=== PATIENT | female | born 1985 | race Caucasian/White ===

== ENCOUNTER 2019-08-19 10:22 | Emergency (ER) | payer SELFPAY ==
[~2019-08-19] VITALS: Ht 170.2 cm; Wt 65.3 kg
[2019-08-19] MEDS ORDERED: LIDOCAINE 2%-EPI 1:100,000 20 ML VIAL ONE (10:48)
[2019-08-19] MEDS ORDERED: LIDOCAINE 1%-EPI 1:100,000 20 ML VIAL IJ ONE (11:00)
[2019-08-19] MEDS ORDERED: SULFAMETH/TRIMETH 800/160 MG TABLET PO ONE (11:15)
[2019-08-19] MEDS ORDERED: SULFAMETH/TRIMETH 800/160 MG TABLET ONE (11:24)
== END 2019-08-19 11:27 | disposition home or self-care (01) ==
LOC: ER 10:22
DX: L02.416 Cutaneous abscess of left lower limb (principal)
CPT/HCPCS: A4663